=== PATIENT | female | born 1990 | race Caucasian/White ===

== ENCOUNTER 2020-07-06 08:22 | Emergency (ER) | payer BC ==
[~2020-07-06] VITALS: Ht 165.1 cm; Wt 81.8 kg
== END 2020-07-06 09:18 | disposition home or self-care (01) ==
LOC: ER 08:23
DX: R00.2 Palpitations (principal); R53.83 Other fatigue; R11.2 Nausea with vomiting, unspecified; E86.0 Dehydration; M54.89 Other dorsalgia; Z20.828 Contact with and (suspected) exposure to other viral communicable diseases
CPT/HCPCS: 36415; 87635; 99283